=== PATIENT | male | born 1955 | race Caucasian/White ===

== ENCOUNTER 2019-02-17 18:02 | Emergency (ER) | payer MEDICARE ==
[~2019-02-17] VITALS: Ht 180.3 cm; Wt 90.0 kg
[2019-02-17] MEDS ORDERED: SODIUM CHLORIDE 0.9% 1,000 ML IV ONE ×2 (19:07→20:29)
[2019-02-17 20:08] LABS: CLARITY URINE CLEAR (CLEAR); COLOR URINE YELLOW (YELLOW); KETONES URINE 3+ (NEGATIVE); LEUKOCYTE ESTERASE URINE NEGATIVE (NEGATIVE); NITRITE URINE NEGATIVE (NEGATIVE); OCCULT BLOOD URINE TRACE (NEGATIVE); PROTEIN URINE TRACE (NEGATIVE); SPECIFIC GRAVITY URINE 1.036 (1.005-1.030); UROBILINOGEN URINE 0.2 E.U./dL (0.2-1.0)
[2019-02-17 20:31] LABS: BASOPHILS % 0.5 % (0.0-2.0); EOSINOPHILS % 0.5 % (0.0-5.0); HEMATOCRIT. 47.8 % (42.0-52.0); HEMOGLOBIN. 16.5 g/dL (14.0-18.0); LYMPHOCYTES % 26.8 % (20.0-50.0); MEAN CORPUSCULAR VOLUME 92.3 fL (80.0-94.0); MEAN PLATELET VOLUME 10.4 fl (7.4-10.4); MONOCYTES % 7.1 % (2.0-8.0); NEUTROPHILS % 65.1 % (40.0-76.0); PLATELET 248 x1000/uL (130-400); RED BLOOD CELL COUNT 5.18 mill/uL (4.7-6.1); RED CELL DISTRIBUTION WIDTH 12.6 % (11.6-14.6)
[2019-02-17 20:34] LABS: CHLORIDE 96 mEq/L (98-107)
[2019-02-17 20:35] LABS: PROTHROMBIN TIME 10.7 sec (9.6-11.0)
[2019-02-17 20:43] LABS: BETA HYDROXYBUTYRATE 2.3 mMol/L (0.0-0.3)
[2019-02-17] MEDS ORDERED: INSULIN REGULAR (HUMULIN R) 300UNITS/3ML IV ONE (20:45)
[2019-02-17 22:45] VITALS: BP 145/91
== END 2019-02-17 22:46 | disposition home or self-care (01) ==
LOC: ER 18:02
DX: E11.9 Type 2 diabetes mellitus without complications (principal); I10 Essential (primary) hypertension
CPT/HCPCS: 36415; 80053; 81003; 82010; 82962; 84484; 85025; 85610; 93005; 96361; 96374; 99284; J1815; J7030